=== PATIENT | male | born 1975 | race Caucasian/White ===

== ENCOUNTER 2016-10-02 12:10 | Outpatient (CLI) | payer OTHER ==
--- NOTE | 2016-10-03 07:32 | RAD ---
TWO VIEWS OF THE THORACIC SPINE: Comparison: None. History: Back pain after falling a ladder in 2008. FINDINGS: Two views of the thoracic spine shows normal height and alignment of the vertebral bodies and interv ertebral discs without fracture or subluxation. No degenerative changes are seen. IMPRESSION: Unremarkable exam. POS: [facility]
== END 2016-10-02 12:11 | disposition home or self-care (01) ==
LOC: NAV RAD 12:10
PROVIDERS: ATTEND Family Medicine
DX: M54.9 Dorsalgia, unspecified (principal); M25.511 Pain in right shoulder; M54.2 Cervicalgia
CPT/HCPCS: 72070